=== PATIENT | female | born 1960 | race Two or more races ===

== ENCOUNTER 2020-05-11 19:38 | Inpatient (IN) | payer MEDICAID, OTHER ==
[~2020-05-11] VITALS: Ht 152.4 cm; Wt 58.0 kg
[2020-05-12 03:47] LABS: Basophils # (auto) 0 10 ^3/uL (0-0.2); Basophils % (auto) 0.3 % (0.0-2.0); Eosinophils # (auto) 0 10 ^3/uL (0-0.8); Eosinophils % (auto) 0.7 % (0.0-7.0); Hematocrit 36.5 % (36.0-46.0); Hemoglobin 11.8 g/dL (12.2-16.2); Lymphocytes # (auto) 1.3 10 ^3/uL (0.4-5.4); Mean Corpuscular Hemoglobin 29.1 pg (28.0-32.0); Mean Corpuscular Hgb Conc. 32.4 g/dL (32.0-36.0); Monocytes # (auto) 0.5 10 ^3/uL (0-1.3); Monocytes % (auto) 8.1 % (0.0-12.0); Neutrophils # (auto) 4.1 10 ^3/uL (1.6-8.6); Neutrophils % (auto) 68.9 % (37.0-80.0); Platelet Count (auto) 318 10^3/uL (140-450); Red Blood Cells 4.05 10^6/uL (4.0-5.20); Red Cell Distribution Width 13.3 % (11.8-14.3); White Blood Cell 5.9 10^3/uL (4.4-10.8)
[2020-05-12 04:11] LABS: Potassium 3.6 mmol/L (3.5-5.1)
[2020-05-12 04:12] LABS: Albumin 2.6 g/dL (3.4-5.0); Calcium 8.5 mg/dL (8.5-10.1)
[2020-05-12 04:15] LABS: BUN/Creatinine Ratio 16.9; Bilirubin, Total 0.2 mg/dL (0.2-1.0); Total Protein 7.4 g/dL (6.4-8.2)
[2020-05-12] MEDS ORDERED: NITROGLYCERIN 0.4 MG SL TAB SL PRN ×2 (09:00→10:45)
[2020-05-12] MEDS ORDERED: methylPREDNISolone SOD SUCC 125 MG/2 ML VL IV ONE (09:00)
[2020-05-12] MEDS ORDERED: MORPHINE SULF INJ 2 MG/ML SYRINGE 1ML IV PRN ×3 (09:00→10:45)
[2020-05-12] MEDS ORDERED: LORazepam 0.5 MG TAB PO PRN (10:45)
[2020-05-12] MEDS ORDERED: ONDANSETRON HCL 4 MG/2 ML VIAL IV PRN (10:45)
[2020-05-12] MEDS ORDERED: ACETAMINOPHEN 500 MG TAB PO PRN (10:45)
[2020-05-12] MEDS ORDERED: HYDROcodone-ACET 5/325MG TAB PO PRN (10:45)
[2020-05-12] MEDS ORDERED: ALUM & MAG HYDROX-SIMETH LIQ(MAALOX) 30 ML PO PRN (10:45)
[2020-05-12] MEDS ORDERED: DOCUSATE SOD 100 MG CAP PO PRN (10:45)
[2020-05-12] MEDS ORDERED: REMDESIVIR PER PHARMACY 0 ML IV SCH (10:45)
[2020-05-12 11:43] LABS: Basophils # (auto) 0 10 ^3/uL (0-0.2); Basophils % (auto) 0.8 % (0.0-2.0); Eosinophils # (auto) 0 10 ^3/uL (0-0.8); Eosinophils % (auto) 0.6 % (0.0-7.0); Hematocrit 36.7 % (36.0-46.0); Hemoglobin 12.2 g/dL (12.2-16.2); Lymphocytes # (auto) 0.8 10 ^3/uL (0.4-5.4); Lymphocytes % (auto) 17.4 % (10.0-50.0); Mean Corpuscular Hgb Conc. 33.3 g/dL (32.0-36.0); Monocytes # (auto) 0.3 10 ^3/uL (0-1.3); Monocytes % (auto) 5.6 % (0.0-12.0); Neutrophils # (auto) 3.5 10 ^3/uL (1.6-8.6); Neutrophils % (auto) 75.6 % (37.0-80.0); Platelet Count (auto) 340 10^3/uL (140-450); Red Blood Cells 4.08 10^6/uL (4.0-5.20); Red Cell Distribution Width 13.4 % (11.8-14.3); White Blood Cell 4.7 10^3/uL (4.4-10.8)
[2020-05-12 11:58] LABS: Magnesium 2.2 mg/dL (1.6-2.6); Potassium 3.5 mmol/L (3.5-5.1)
[2020-05-12 12:07] LABS: Cholesterol 206 mg/dL (< 200); HDL Cholesterol 41 mg/dL (40-59); LDL Cholesterol 146 mg/dL (< 100); Triglycerides 123 mg/dL (< 150)
[2020-05-12 12:09] LABS: Albumin 2.8 g/dL (3.4-5.0); BUN/Creatinine Ratio 16.3; Bilirubin, Total 0.4 mg/dL (0.2-1.0); CRP High Sensitivity 9.5 mg/dL (< 0.3); Total Protein 7.7 g/dL (6.4-8.2)
[2020-05-12] MEDS: SODIUM CHLORIDE 0.9% 1,000 ML IV SCH (12:38)
[2020-05-12] MEDS ORDERED: DEXTROSE (50%) 50ML SYRG IV PRN (16:30)
[2020-05-12] MEDS ORDERED: hydrALAZINE HCL 20 MG/ML VL IV PRN (16:30)
[2020-05-12] MEDS: ACCU-CHEK COMFORT CURVE STRIP VI SCH (18:26)
[2020-05-12] MEDS: InsuLIN REG 1unit/0.01ml Soln (100units/ml) SC SCH ×2 (18:51→22:55)
[2020-05-12 21:13] LABS: Free T4 (Free Thyroxine) 0.67 ng/dL (0.89-1.76); T3 Total 0.65 ng/mL (0.60-1.81)
[2020-05-12] MEDS: BUDESONIDE (INHALATION) 180 MCG IH IN SCH (22:00)
[2020-05-13] MEDS: FAMOTIDINE (10MG/ML) 2ML VL IV SCH ×2 (00:28→10:04)
[2020-05-13] MEDS: ACCU-CHEK COMFORT CURVE STRIP VI SCH ×5 (00:29→23:10)
[2020-05-13] MEDS: DOXYCYCLINE 100MG/250ML 250 ML IV SCH ×3 (00:29→22:52)
[2020-05-13] MEDS: ATORVASTATIN 20 MG TAB PO SCH ×2 (00:29→22:03)
[2020-05-13] MEDS: ENOXAPARIN SOD 40 MG/0.4 ML SYRINGE SC SCH ×3 (00:29→22:03)
[2020-05-13] MEDS: SODIUM CHLORIDE 0.9% 1,000 ML IV SCH (04:24)
[2020-05-13] MEDS: ALBUTEROL SULF HFA 90MCG INH 200DOSE IN PRN ×2 (08:13→23:11)
[2020-05-13] MEDS: BUDESONIDE (INHALATION) 180 MCG IH IN SCH ×2 (08:14→19:21)
[2020-05-13] MEDS: InsuLIN REG 1unit/0.01ml Soln (100units/ml) SC SCH ×4 (08:28→23:13)
[2020-05-13 09:52] LABS: Basophils # (auto) 0 10 ^3/uL (0-0.2); Basophils % (auto) 0.2 % (0.0-2.0); Eosinophils # (auto) 0 10 ^3/uL (0-0.8); Eosinophils % (auto) 0.1 % (0.0-7.0); Hematocrit 36.2 % (36.0-46.0); Hemoglobin 12.2 g/dL (12.2-16.2); Lymphocytes # (auto) 1.1 10 ^3/uL (0.4-5.4); Lymphocytes % (auto) 20.4 % (10.0-50.0); Mean Corpuscular Hemoglobin 30.3 pg (28.0-32.0); Mean Corpuscular Hgb Conc. 33.8 g/dL (32.0-36.0); Mean Corpuscular Volume 89.7 fL (80.0-100.0); Monocytes # (auto) 0.5 10 ^3/uL (0-1.3); Monocytes % (auto) 8.6 % (0.0-12.0); Neutrophils # (auto) 3.9 10 ^3/uL (1.6-8.6); Neutrophils % (auto) 70.7 % (37.0-80.0); Platelet Count (auto) 414 10^3/uL (140-450); Red Blood Cells 4.04 10^6/uL (4.0-5.20); Red Cell Distribution Width 13.4 % (11.8-14.3); White Blood Cell 5.5 10^3/uL (4.4-10.8)
[2020-05-13] MEDS: ASPirin 81 mg TAB PO SCH (10:04)
[2020-05-13] MEDS: ASCORBIC ACID 1,000 MG TAB PO SCH (10:04)
[2020-05-13] MEDS: CHOLECALCIFEROL (VITD3) 2,000 UNIT CAP/TAB PO SCH (10:04)
[2020-05-13] MEDS: ZINC SULFATE 220mg CAP or TAB PO SCH (10:04)
[2020-05-13] MEDS: DexAMETHasone SOD PHOS 10MG/1ML VIAL INJ IV SCH (10:04)
[2020-05-13 10:08] LABS: Potassium 3.5 mmol/L (3.5-5.1)
[2020-05-13 10:24] LABS: BUN/Creatinine Ratio 32.7
[2020-05-13 10:25] LABS: Albumin 2.6 g/dL (3.4-5.0); Bilirubin, Total 0.3 mg/dL (0.2-1.0); Total Protein 7.3 g/dL (6.4-8.2)
[2020-05-13] MEDS ORDERED: REMDESIVIR PER PHARMACY 0 ML IV SCH (11:30)
[2020-05-13] MEDS ORDERED: guaiFENesin-DM 100/10mg/5ml SYR PO PRN (14:30)
[2020-05-13] MEDS ORDERED: REMDESIVIR 200 MG in NS 210ml LOADING DOSE ADULT IV ONE (15:00)
[2020-05-13 20:05] VITALS: BP 124/61
[2020-05-13 22:00] VITALS: BP 122/62
[2020-05-14] MEDS: SODIUM CHLORIDE 0.9% 1,000 ML IV SCH (01:37)
[2020-05-14 06:34] VITALS: BP 130/66
[2020-05-14] MEDS: ACCU-CHEK COMFORT CURVE STRIP VI SCH ×4 (07:00→22:18)
[2020-05-14] MEDS: BUDESONIDE (INHALATION) 180 MCG IH IN SCH ×2 (07:20→22:00)
[2020-05-14] MEDS: InsuLIN REG 1unit/0.01ml Soln (100units/ml) SC SCH ×4 (08:00→22:18)
[2020-05-14] MEDS: ALBUTEROL SULF HFA 90MCG INH 200DOSE IN PRN ×2 (09:14→23:50)
[2020-05-14] MEDS: DexAMETHasone SOD PHOS 10MG/1ML VIAL INJ IV SCH (10:00)
[2020-05-14] MEDS: FAMOTIDINE (10MG/ML) 2ML VL IV SCH (11:26)
[2020-05-14] MEDS: ASPirin 81 mg TAB PO SCH (11:26)
[2020-05-14] MEDS: CHOLECALCIFEROL (VITD3) 2,000 UNIT CAP/TAB PO SCH (11:26)
[2020-05-14] MEDS: ZINC SULFATE 220mg CAP or TAB PO SCH (11:26)
[2020-05-14] MEDS: ASCORBIC ACID 1,000 MG TAB PO SCH (11:26)
[2020-05-14] MEDS: DOXYCYCLINE 100MG/250ML 250 ML IV SCH ×2 (11:26→22:16)
[2020-05-14] MEDS: ENOXAPARIN SOD 40 MG/0.4 ML SYRINGE SC SCH ×2 (11:26→22:17)
[2020-05-14 15:03] VITALS: BP 137/71
[2020-05-14] MEDS: REMDESIVIR 100 MG in SODIUM CHL 0.9% 250 ML IV SCH (15:14)
[2020-05-14] MEDS ORDERED: LEVO25TA6 PO (16:13)
[2020-05-14 22:00] VITALS: BP 132/63
[2020-05-14] MEDS: ATORVASTATIN 20 MG TAB PO SCH (22:17)
[2020-05-15 05:00] VITALS: BP 135/69
[2020-05-15] MEDS: ACCU-CHEK COMFORT CURVE STRIP VI SCH ×4 (06:46→21:50)
[2020-05-15] MEDS: InsuLIN REG 1unit/0.01ml Soln (100units/ml) SC SCH ×4 (06:52→22:32)
[2020-05-15] MEDS: ALBUTEROL SULF HFA 90MCG INH 200DOSE IN PRN ×2 (06:55→21:11)
[2020-05-15] MEDS: BUDESONIDE (INHALATION) 180 MCG IH IN SCH ×2 (06:55→21:11)
[2020-05-15] MEDS: ENOXAPARIN SOD 40 MG/0.4 ML SYRINGE SC SCH ×2 (09:52→21:50)
[2020-05-15] MEDS: ASPirin 81 mg TAB PO SCH (09:53)
[2020-05-15] MEDS: ZINC SULFATE 220mg CAP or TAB PO SCH (09:53)
[2020-05-15] MEDS: FAMOTIDINE (10MG/ML) 2ML VL IV SCH (09:53)
[2020-05-15] MEDS: ASCORBIC ACID 1,000 MG TAB PO SCH (09:54)
[2020-05-15] MEDS: CHOLECALCIFEROL (VITD3) 2,000 UNIT CAP/TAB PO SCH (09:54)
[2020-05-15] MEDS: DexAMETHasone SOD PHOS 10MG/1ML VIAL INJ IV SCH (09:54)
[2020-05-15] MEDS: DOXYCYCLINE 100MG/250ML 250 ML IV SCH ×2 (09:54→21:49)
[2020-05-15 11:20] LABS: Albumin 2.5 g/dL (3.4-5.0); Bilirubin, Direct 0.1 mg/dL (0-0.2); Calcium 8.4 mg/dL (8.5-10.1); Potassium 3.2 mmol/L (3.5-5.1)
[2020-05-15 11:31] LABS: BUN/Creatinine Ratio 26.9; Bilirubin, Total 0.2 mg/dL (0.2-1.0); Total Protein 6.6 g/dL (6.4-8.2)
[2020-05-15] MEDS: REMDESIVIR 100 MG in SODIUM CHL 0.9% 250 ML IV SCH (17:30)
[2020-05-15] MEDS ORDERED: POTASSIUM CHL 20 Meq TABLET PO ONE (20:00)
[2020-05-15] MEDS: ATORVASTATIN 20 MG TAB PO SCH (21:50)
[2020-05-15] MEDS: FAMOTIDINE 20 MG TAB PO SCH (21:50)
[2020-05-15 22:00] VITALS: BP 133/71
[2020-05-16 05:00] VITALS: BP 131/71
[2020-05-16] MEDS: BUDESONIDE (INHALATION) 180 MCG IH IN SCH ×2 (06:21→20:20)
[2020-05-16] MEDS: ALBUTEROL SULF HFA 90MCG INH 200DOSE IN PRN ×2 (06:22→20:20)
[2020-05-16] MEDS: InsuLIN REG 1unit/0.01ml Soln (100units/ml) SC SCH ×4 (06:25→21:56)
[2020-05-16] MEDS: ACCU-CHEK COMFORT CURVE STRIP VI SCH ×4 (06:25→21:54)
[2020-05-16] MEDS: LEVOTHYROXINE SODIUM 25 MCG TAB PO SCH (06:25)
[2020-05-16 07:09] LABS: Basophils # (auto) 0 10 ^3/uL (0-0.2); Eosinophils # (auto) 0 10 ^3/uL (0-0.8); Hemoglobin 12.2 g/dL (12.2-16.2); Monocytes # (auto) 0.6 10 ^3/uL (0-1.3); Nucleated Red Blood Cells % 0.1 %; Red Blood Cells 4.16 10^6/uL (4.0-5.20)
[2020-05-16 07:12] LABS: Basophils % (auto) 0.1 % (0.0-2.0); Eosinophils % (auto) 0.5 % (0.0-7.0); Hematocrit 37.4 % (36.0-46.0); Lymphocytes # (auto) 1.7 10 ^3/uL (0.4-5.4); Lymphocytes % (auto) 25.5 % (10.0-50.0); Mean Corpuscular Hemoglobin 29.5 pg (28.0-32.0); Mean Corpuscular Hgb Conc. 32.8 g/dL (32.0-36.0); Mean Corpuscular Volume 89.9 fL (80.0-100.0); Monocytes % (auto) 9.1 % (0.0-12.0); Neutrophils # (auto) 4.4 10 ^3/uL (1.6-8.6); Neutrophils % (auto) 64.8 % (37.0-80.0); Platelet Count (auto) 504 10^3/uL (140-450); Red Cell Distribution Width 13.2 % (11.8-14.3); White Blood Cell 6.8 10^3/uL (4.4-10.8)
[2020-05-16 07:24] LABS: Potassium 3.3 mmol/L (3.5-5.1)
[2020-05-16 07:34] LABS: Albumin 2.5 g/dL (3.4-5.0); BUN/Creatinine Ratio 39.5; Bilirubin, Total 0.2 mg/dL (0.2-1.0); Calcium 8.9 mg/dL (8.5-10.1); Total Protein 6.9 g/dL (6.4-8.2)
[2020-05-16 09:25] VITALS: BP 121/65
[2020-05-16] MEDS: ZINC SULFATE 220mg CAP or TAB PO SCH (10:30)
[2020-05-16] MEDS: FAMOTIDINE 20 MG TAB PO SCH ×2 (10:30→21:54)
[2020-05-16] MEDS: DOXYCYCLINE 100MG/250ML 250 ML IV SCH ×2 (10:30→21:53)
[2020-05-16] MEDS: CHOLECALCIFEROL (VITD3) 2,000 UNIT CAP/TAB PO SCH (10:30)
[2020-05-16] MEDS: DexAMETHasone SOD PHOS 10MG/1ML VIAL INJ IV SCH (10:30)
[2020-05-16] MEDS: ENOXAPARIN SOD 40 MG/0.4 ML SYRINGE SC SCH ×2 (10:30→21:54)
[2020-05-16] MEDS: ASCORBIC ACID 1,000 MG TAB PO SCH (10:30)
[2020-05-16] MEDS: ASPirin 81 mg TAB PO SCH (10:30)
[2020-05-16 13:00] VITALS: BP 118/65
[2020-05-16] MEDS ORDERED: POTASSIUM CHL 20 Meq TABLET PO ONE (14:00)
[2020-05-16] MEDS: REMDESIVIR 100 MG in SODIUM CHL 0.9% 250 ML IV SCH (15:20)
[2020-05-16 17:00] VITALS: BP 118/72
[2020-05-16 20:55] LABS: Urine Bacteria NONE SEEN /hpf (None Seen); Urine Blood Negative /uL (Negative); Urine Specific Gravity 1.017 (1.001-1.035); Urine WBC <1 /hpf (0 - 5)
[2020-05-16] MEDS: ATORVASTATIN 20 MG TAB PO SCH (21:53)
[2020-05-16 22:00] VITALS: BP 131/75
[2020-05-17 05:00] VITALS: BP 111/65
[2020-05-17 06:26] LABS: Potassium 3.9 mmol/L (3.5-5.1)
[2020-05-17 06:29] LABS: BUN/Creatinine Ratio 30.2; Calcium 8.7 mg/dL (8.5-10.1)
[2020-05-17] MEDS: ACCU-CHEK COMFORT CURVE STRIP VI SCH ×4 (06:58→22:02)
[2020-05-17] MEDS: LEVOTHYROXINE SODIUM 25 MCG TAB PO SCH (06:59)
[2020-05-17] MEDS: InsuLIN REG 1unit/0.01ml Soln (100units/ml) SC SCH ×4 (07:01→22:03)
[2020-05-17 08:00] VITALS: BP 107/68
[2020-05-17 08:12] VITALS: BP 107/68
[2020-05-17] MEDS: BUDESONIDE (INHALATION) 180 MCG IH IN SCH ×2 (08:39→23:55)
[2020-05-17] MEDS: ALBUTEROL SULF HFA 90MCG INH 200DOSE IN PRN ×2 (08:39→23:55)
[2020-05-17] MEDS: DexAMETHasone SOD PHOS 10MG/1ML VIAL INJ IV SCH (09:11)
[2020-05-17] MEDS: ZINC SULFATE 220mg CAP or TAB PO SCH (09:12)
[2020-05-17] MEDS: ASCORBIC ACID 1,000 MG TAB PO SCH (09:12)
[2020-05-17] MEDS: ASPirin 81 mg TAB PO SCH (09:12)
[2020-05-17] MEDS: DOXYCYCLINE 100MG/250ML 250 ML IV SCH (09:12)
[2020-05-17] MEDS: FAMOTIDINE 20 MG TAB PO SCH ×2 (09:12→22:01)
[2020-05-17] MEDS: CHOLECALCIFEROL (VITD3) 2,000 UNIT CAP/TAB PO SCH (09:12)
[2020-05-17] MEDS: ENOXAPARIN SOD 40 MG/0.4 ML SYRINGE SC SCH ×2 (09:13→22:02)
[2020-05-17] MEDS ORDERED: DexAMETHasone 4 MG TAB PO ONE (13:00)
[2020-05-17] MEDS: REMDESIVIR 100 MG in SODIUM CHL 0.9% 250 ML IV SCH (15:47)
[2020-05-17 17:27] VITALS: BP 106/60
[2020-05-17] MEDS: metFORMIN HYDROCHLORIDE 500 MG TAB PO SCH (17:47)
[2020-05-17 22:00] VITALS: BP 112/63
[2020-05-17] MEDS: ATORVASTATIN 20 MG TAB PO SCH (22:01)
[2020-05-18 04:00] VITALS: BP 109/85
[2020-05-18] MEDS: LEVOTHYROXINE SODIUM 25 MCG TAB PO SCH (06:41)
[2020-05-18] MEDS: InsuLIN REG 1unit/0.01ml Soln (100units/ml) SC SCH ×2 (06:42→13:15)
[2020-05-18] MEDS: ACCU-CHEK COMFORT CURVE STRIP VI SCH ×2 (06:42→11:30)
[2020-05-18] MEDS: metFORMIN HYDROCHLORIDE 500 MG TAB PO SCH (08:07)
[2020-05-18] MEDS: ASPirin 81 mg TAB PO SCH (08:08)
[2020-05-18] MEDS: ZINC SULFATE 220mg CAP or TAB PO SCH (08:08)
[2020-05-18] MEDS: FAMOTIDINE 20 MG TAB PO SCH (08:08)
[2020-05-18] MEDS: ASCORBIC ACID 1,000 MG TAB PO SCH (08:09)
[2020-05-18] MEDS: ENOXAPARIN SOD 40 MG/0.4 ML SYRINGE SC SCH (08:09)
[2020-05-18] MEDS: CHOLECALCIFEROL (VITD3) 2,000 UNIT CAP/TAB PO SCH (08:09)
[2020-05-18 09:08] VITALS: BP 105/52
[2020-05-18] MEDS ORDERED: DexAMETHasone 4 MG TAB PO SCH (10:00)
[2020-05-18] MEDS: BUDESONIDE (INHALATION) 180 MCG IH IN SCH ×2 (10:00→18:30)
[2020-05-18 12:46] VITALS: BP 101/60
[2020-05-18 15:29] VITALS: BP 105/52
[2020-05-18] MEDS: ALBUTEROL SULF HFA 90MCG INH 200DOSE IN PRN ×2 (15:35→18:49)
== END 2020-05-18 17:15 | disposition home or self-care (01) | DRG 137 ==
LOC: ER 19:38 → OVERFLOW 19:39 → TELE-EAST 05-12 23:49 → TELE-CENTR 05-14 14:37 → TELE-WESTW 05-15 17:42
PROVIDERS: ADMIT Hospitalist; ATTEND Internal Medicine
PROC: XW033E5 Introduction of Remdesivir Anti-infective into Peripheral Vein, Percutaneous Approach, New Technology Group 5 (ICD-10-PCS; principal; 2020-05-13)
DX: U07.1 COVID-19 (principal); J96.01 Acute respiratory failure with hypoxia; J12.89 Other viral pneumonia; E43 Unspecified severe protein-calorie malnutrition; E87.1 Hypo-osmolality and hyponatremia; D68.59 Other primary thrombophilia; E78.5 Hyperlipidemia, unspecified; E03.9 Hypothyroidism, unspecified; Z79.84 Long term (current) use of oral hypoglycemic drugs; Z79.82 Long term (current) use of aspirin; Z79.899 Other long term (current) drug therapy; Z91.19 Patient's noncompliance with other medical treatment and regimen
CPT/HCPCS: 36415; 36600; 71045; 80048; 80053; 80061; 80076; 81001; 82728; 82805; 82962; 83036; 83605; 83615; 83735; 84439; 84443; 84480; 84484; 85025; 85379; 86141; 87040; 87426; 87804; 93005; 94640; G0378; J1100; J1815; J3490

== ENCOUNTER 2024-03-16 17:12 | Emergency (ER) | payer MEDICAID ==
[~2024-03-16] VITALS: Ht 154.9 cm; Wt 58.1 kg
[~2024-03-16 17:12] MED LIST: LEVO25TA6 PO
[2024-03-16 18:17] VITALS: BP 164/64; PULSE 109; RESP 18; TEMP 98.6; O2SAT 96
[2024-03-16] MEDS ORDERED: BACDST PO (18:43)
[2024-03-16] MEDS ORDERED: ACET500T58 PO (18:43)
[2024-03-16 19:06] LABS: Urine Bacteria FEW /hpf (None Seen); Urine Blood 2+ /uL (Negative); Urine Clarity Turbid (Clear); Urine Color Colorless (Yellow); Urine Protein, UAD TRACE (Negative); Urine Specific Gravity 1.009 (1.001-1.035); Urine Urobilinogen Normal (Negative); Urine WBC 142 /hpf (0 - 5); Urine WBC Clumps PRESENT /hpf (None Seen)
[2024-03-16] MEDS: LIDOCAINE 1% HCL (LOCAL ANESTH.) INJ 20ML MDV ONE (19:24)
[2024-03-16] MEDS: LIDOCAINE 1% HCL (LOCAL ANESTH.) INJ 20ML MDV IJ ONE (19:24)
[2024-03-16] MEDS: cefTRIAXone SOD 1,000 MG VL IM ONE (19:29)
== END 2024-03-16 19:30 | disposition home or self-care (01) ==
LOC: ER 17:12
DX: N39.0 Urinary tract infection, site not specified (principal); E11.9 Type 2 diabetes mellitus without complications; Z79.890 Hormone replacement therapy
CPT/HCPCS: 81001; 96372; 99283; J0696; J2003